=== PATIENT | female | born 1970 | race Caucasian/White ===

== ENCOUNTER 2024-10-29 06:20 | Day surgery (SDC) | payer MEDICAID, SELFPAY ==
--- NOTE | 2024-10-24 15:07 | ESHP_ITS ---
RE: LI SURESH : 1970 DATE OF ADMISSION: 10/29/2024 HISTORY OF PRESENT ILLNESS: The patient is a 54-year-old female. She cannot hold her urine. She leaks urine on any kind of stress of sneezing, coughing, laughing. She has no urinary burning. No history of gross hematuria. PAST SURGICAL HISTORY: Appendectomy. PAST MEDICAL HISTORY: There is no history of diabetes mellitus. No history of hypertension. SOCIAL HISTORY: She has no children. HOME MEDICATIONS: The patient does not take any medicine. ALLERGIES: CODEINE. PHYSICAL EXAMINATION: HEENT: Normal. NECK: Supple. LUNGS: Clear. CARDIOVASCULAR: Heart sounds are normal. ABDOMEN: Soft without any organomegaly. No guarding. No rigidity. EXTREMITIES: Normal. GENITOURINARY: Pelvic examination revealed grade I urethrocele. LABORATORY DATA: The patient had cystoscopy done, which revealed gross urinary stress incontinence, low residual urine, normal capacity bladder, no intravesical stones or tumors. The patient is still leaking urine on stairs. She has gross urinary stress incontinence with positive Yoni's test. PLAN: Treatment options were given to the patient. The patient would like to have surgery. She is now scheduled to have bladder neck suspension, cystoscopy, urethrolysis with Lynx vaginal sling procedure. Planned procedure, risks and complications have been discussed with the patient. The patient has understood and agreed to proceed. DT: 12:34:33 TT: 15:06:00 Ref: [id number] - TID: [id number]
--- NOTE | 2024-10-25 10:37 | EKG_ITS ---
[facility] Test Date: 2024-10-25 Pat Name: LI SURESH Department: Room: - Gender: Female [employer] Machine Operator: CM : 1970 Requested By: Cayetano Serna Order Number: [id number] Reading MD: Cayetano Serna Measurements Intervals [place] Rate: 76 P: 67 [place]: 174 QRS: 37 QRSD: 88 T: 61 QT: 398 QTc: 449 Interpretive Statements SINUS RHYTHM POSSIBLE RIGHT VENTRICULAR CONDUCTION DELAY No previous ECG available for comparison /store/S0/[id number]/ecg/[id number].pdf
[2024-10-25 11:23] VITALS: BMI 28.5
[2024-10-25 11:47] LABS: Collection Type, Urine Clean Catch
[2024-10-25 12:21] LABS: Bacteria,Urine Rare; Bilirubin,Urine Negative (Negative); Blood,Urine Negative (Negative); Clarity,Urine Clear (Clear/Hazy); Color,Urine Colorless (Lt Yel-Yel); Glucose, Urine Negative (Negative); Ketones,Urine Negative (Negative); Leukocyte Esterase,Urine Negative (Negative); Nitrite,Urine Negative (Negative); Protein,Urine Negative (Neg - Trace); RBC,Urine 2 /hpf (0-3); Specific Gravity,Urine 1.006 (1.001-1.035); Squamous Epithelial Cell,Urine < 1 /hpf (0-5); Urobilinogen,Urine Negative mg/dL (0.0-1.0); WBC,Urine 1 /hpf (0-5)
[2024-10-25 12:21] LABS: Basophils % (Auto) 1 % (0-2.5); Eosinophils # (Auto) 0.1 Thou/mm3 (0.0-0.5); Eosinophils % (Auto) 3 % (0-10); Hematocrit 39.7 % (36.0-46.0); Hemoglobin 13.3 g/dL (12.0-16.0); Immature Granulocytes % (Auto) 0 % (0-0); Immature Granulocytes Auto 0.01 Thou/mm3 (0.00-0.00); Lymphocytes # (Auto) 1.9 Thou/mm3 (1.0-4.8); Lymphocytes % (Auto) 39 % (10-50); Mean Corpuscular HGB Conc 33.5 g/dl (31.0-37.0); Mean Corpuscular Hemoglobin 30.9 pg (25.0-35.0); Mean Corpuscular Volume 92 fL (80-100); Monocytes # (Auto) 0.4 Thou/mm3 (0.0-0.8); Monocytes % (Auto) 8 % (0-12); Neutrophils # (Auto) 2.4 Thou/mm3 (1.8-7.7); Neutrophils % (Auto) 50 % (37-80); Nucleated Red Blood Cell % 0 /100 WBC (0); Platelet Count 242 Thou/mm3 (140-440); RDW Standard Deviation 45.7 fL (36.4-46.3); Red Blood Count 4.31 Miln/mm3 (4.00-5.20); White Blood Count 4.8 Thou/mm3 (3.6-11.0)
[2024-10-25 12:29] LABS: Alanine Aminotransferase 42 U/L (10-49); Albumin, Serum 4.7 gm/dL (3.5-5.0); Albumin/Globulin Ratio 1.9 (1.2-2.2); Alkaline Phosphatase 88 U/L (46-116); Anion Gap 7 (7-16); Aspartate Amino Transferase 37 U/L (0-34); BUN/Creatinine Ratio 12 Ratio (12-20); Bilirubin,Total 0.5 mg/dL (0.3-1.2); Blood Urea Nitrogen 11 mg/dL (9-23); Calcium 9.7 mg/dL (8.3-10.6); Calcium (Corrected) 9.7 mg/dL (8.5-10.1); Carbon Dioxide 30.2 mMol/L (20.0-31.0); Chloride 106 mMol/L (98-107); Creatinine (Component) 0.9 mg/dL (0.6-1.3); Estimated Creatinine Clearance 69.3 mL/min (>60); Globulin 2.5 gm/dL (2.3-3.5); Glucose 95 mg/dL (74-106); Osmolality,Calculated 284 (275-295); Sodium 143 mMol/L (136-145); Total Protein 7.2 gm/dL (5.7-8.2); eGFR > 60 See Note
[2024-10-29] VITALS (25 sets, daily range): BP systolic 110–148; BP diastolic 73–99; PULSE 85–123; RESP 12–96; TEMP 36.2–37.1; O2SAT 95–100; BMI 28.0
[2024-10-29] MEDS: RINGERS LACTATED 1000 ML 1,000 ML 20 ML IV (07:15)
--- NOTE | 2024-10-29 09:54 | SUR.PHASEI ---
0954: Pt. AAOx4, vitals stable, breathing unlabored, complaint of slight pain, will give pain medications, No complaint of nausea, dressing in vaginal canal, no active bleed noted, celis catheter in place draining clear yellow urine, report received from Ever SUBRAMANIAN, and Lyric WELLS.
[2024-10-29] MEDS: fentaNYL CIT INJ 50 mCg/ML AMP 2ML IV ×4 (10:05→12:17)
[2024-10-29] MEDS: RINGERS LACTATED 1000 ML 1,000 ML 100 ML IV ×2 (11:05→22:04)
--- NOTE | 2024-10-29 11:09 | ESOP_ITS ---
RE: LI SURESH : 1970 DATE OF OPERATION: 10/29/2024 PREOPERATIVE DIAGNOSIS: Gross urinary stress incontinence. POSTOPERATIVE DIAGNOSIS: Gross urinary stress incontinence. PROCEDURE PERFORMED: Bladder neck suspension, cystoscopy, urethrolysis with Lynx vaginal sling procedure. ANESTHESIA: General. INDICATION: The patient is a 54-year-old female with gross urinary stress incontinence. She loses urine on any kind of stress of sneezing, coughing, laughing. She is very much troubled with this and wishes to have this corrected. Cystoscopy was done, which revealed a normal capacity bladder, low residual urine, no intravesical stones or tumors. No uninhibited bladder contractions. Gross urinary stress incontinence with positive Yoni test. The patient was given treatment options for her gross urinary stress incontinence. She has decided to have surgery. She is now scheduled to have bladder neck suspension, cystoscopy, urethrolysis with Lynx vaginal sling procedure. Planned procedure, risks and complications have been discussed with the patient. The patient has understood them and agreed to proceed. After the patient was brought to the operating table under adequate general anesthesia and dorsal lithotomy position, parts were prepped and draped in the usual fashion. A 16- [place] Velasco catheter was then inserted into the bladder and was left indwelling. Injection of local anesthetic was done in the anterior vaginal wall. Small vertical incision was made 0.5 cm long between mid urethra towards the bladder neck. Dissection was then carried out on both sides underneath the vaginal mucosa for about 2 inches. Deep endopelvic fascia was entered and urethrolysis was carried out. The patient was found to be very tight. Retropubic space was identified. At this point, in the suprapubic area, two small incisions were made about 0.5 cm long, about 3 inches from the midline in the suprapubic area. Lynx needles were passed from the suprapubic wound into the vaginal wound under finger controlled behind the pubic bone on both sides. At this point, cystoscopy was carried out. Velasco catheter was removed. Cystoscopy did not reveal any evidence of any injury to the bladder. The needles were not seen in the bladder and the bladder appeared to be intact. Cystoscope was then removed. A Velasco catheter was placed back into the bladder. Lynx sling was attached to both needles and was pulled in place. Excess of the sling was removed and sheath of the sling was also removed. Excessive tension on the sling was avoided. Anterior vaginal wound was closed with continuous sutures of 2-0 chromic catgut. Suprapubic wounds were closed with interrupted sutures of 3-0 chromic gut. Kerlix soaked in Betadine solution was used as vaginal packing. Sterile dressing was then applied and the patient was then transferred to the recovery room in a satisfactory condition having tolerated the entire procedure well. Sponge count and needle count at the end of the procedure were found to be correct. Estimated blood loss was approximately 25 mL. DT: 10:08:16 TT: 11:08:00 Ref: [id number] - TID: [id number]
[2024-10-29] MEDS: ONDANSETRON INJ 2 MG/ML INJ 2 ML 4 MG IV (12:17)
--- NOTE | 2024-10-29 12:51 | SUR.PHASEII ---
1251: Pt. AAOx4, vitals stable, breathing unlabored, no complaint of pain or nasuea, dressing CDI, no active bleed noted, report given to Imelda Balderas RN to resume care of pt.
--- NOTE | 2024-10-29 13:31 | SUR.PHASEII ---
report to Gabbi SUBRAMANIAN
[2024-10-29] MEDS: METOPROLOL TARTRATE INJ 1 MG/ML AMP 5 ML 2.5 MG IVP (14:22)
[2024-10-29] MEDS: fentaNYL CIT INJ 50 mCg/ML AMP 2ML IVP (15:34)
[2024-10-29] MEDS: ACETAMINOPHEN IVPB 1,000 MG/100 ML VIAL 250 MG IV (15:38)
--- NOTE | 2024-10-29 16:00 | SUR.PHASEII ---
1600: Pt. AAOx4, vitals stable, breathing unlabored, no complaint of pain or nausea, dressing CDI, no active bleed noted, celis catheter in place, gave report to Hank SUBRAMANIAN prior to transfer to room 352, family made aware of transfer to room, pt. transferred with all personal belongings.
[2024-10-29] MEDS: HYDROcodone/APAP 5/325 TABLET 1 TAB PO (19:24)
[2024-10-29] MEDS: ACETAMINOPHEN 325 MG TABLET 650 MG PO (22:22)
[2024-10-30] VITALS: BP 113/69; PULSE 77; RESP 16; TEMP 36.5; O2SAT 95
[2024-10-30 04:00] VITALS: BP 119/72; PULSE 90; RESP 18; TEMP 36.7; O2SAT 98
[2024-10-30 05:24] LABS: Basophils % (Auto) 0 % (0-2.5); Eosinophils % (Auto) 0 % (0-10); Hematocrit 37.8 % (36.0-46.0); Hemoglobin 12.3 g/dL (12.0-16.0); Immature Granulocytes % (Auto) 0 % (0-0); Immature Granulocytes Auto 0.05 Thou/mm3 (0.00-0.00); Lymphocytes # (Auto) 1.7 Thou/mm3 (1.0-4.8); Lymphocytes % (Auto) 14 % (10-50); Mean Corpuscular HGB Conc 32.5 g/dl (31.0-37.0); Mean Corpuscular Hemoglobin 30.4 pg (25.0-35.0); Mean Corpuscular Volume 94 fL (80-100); Monocytes % (Auto) 8 % (0-12); Neutrophils # (Auto) 9.9 Thou/mm3 (1.8-7.7); Neutrophils % (Auto) 78 % (37-80); Nucleated Red Blood Cell % 0 /100 WBC (0); Platelet Count 222 Thou/mm3 (140-440); Red Blood Count 4.04 Miln/mm3 (4.00-5.20); White Blood Count 12.8 Thou/mm3 (3.6-11.0)
[2024-10-30 05:44] LABS: Albumin, Serum 4.1 gm/dL (3.5-5.0); Anion Gap 9 (7-16); BUN/Creatinine Ratio 11 Ratio (12-20); Blood Urea Nitrogen 9 mg/dL (9-23); Calcium 9.7 mg/dL (8.3-10.6); Calcium (Corrected) 9.7 mg/dL (8.5-10.1); Carbon Dioxide 28.9 mMol/L (20.0-31.0); Chloride 102 mMol/L (98-107); Creatinine (Component) 0.8 mg/dL (0.6-1.3); Estimated Creatinine Clearance 77.5 mL/min (>60); Glucose 99 mg/dL (74-106); Osmolality,Calculated 278 (275-295); Phosphorous 3.9 mg/dL (2.4-5.1); Potassium 4.3 mMol/L (3.4-5.1); Sodium 140 mMol/L (136-145); eGFR > 60 See Note
[2024-10-30 08:00] VITALS: BP 122/77; PULSE 99; RESP 19; TEMP 36.9; O2SAT 95
[2024-10-30] MEDS: LEVOFLOXACIN/D5W 500 MG IVPB 500 MG/100 ML BAG 100 MG IV (08:00)
[2024-10-30 09:05] VITALS: PULSE 96; RESP 16; RESP 95
[2024-10-30] MEDS: RINGERS LACTATED 1000 ML 1,000 ML 100 ML IV (10:23)
--- NOTE | 2024-10-30 10:59 | CHAP ---
Patient was visited by a spiritual care volunteer 0n 10/30/2024 between [id number] and 1018 and received encouragement, comfort and/or prayer.
== END 2024-10-30 12:50 | disposition home or self-care (01) ==
LOC: S2EX 09:51 → S3NX 10-30 08:10
PROVIDERS: Anesthesiology; PCP Family Medicine; Referring Provider Surgery; Visit Provider Surgery
PROC: 0TJB8ZZ Inspection of Bladder, Via Natural or Artificial Opening Endoscopic (ICD-10-PCS; CPT 57288; principal; 2024-10-29 08:30)
DX: N39.3 Stress incontinence (female) (male) (principal); Z90.49 Acquired absence of other specified parts of digestive tract; Z01.810 Encounter for preprocedural cardiovascular examination
CPT/HCPCS: 57288; 36415; 80053; 80069; 81001; 85025; 87086; 93005; 94664; A4217; A4649; C1771; J0131; J1100; J1956; J2405; J2704; J3010; J3490; J7120; A9270